=== PATIENT | male | born 1990 | race Caucasian/White ===

== ENCOUNTER 2020-10-04 03:58 | Emergency (ER) | payer OTHER ==
[~2020-10-04] VITALS: Ht 188 cm; Wt 126.6 kg
[2020-10-04 04:04] VITALS: BP 148/75
--- NOTE | 2020-10-04 04:04 | NUR ---
TO BED AMBULATORY
--- NOTE | 2020-10-04 04:15 | NUR ---
30 YO M BIB SELF FOR C/O COUGH X6-8 WEEKS. PT STATES HE HAS PROD. COUGH WITH RED TINGED SPUTUM. PT STATES HE HAS +40 LB WEIGHT LOSS, NIGHT SWEATS, AND INTERMITTENT CHEST PAIN IN THE PAST COUPLE MONTHS. LUNG SOUNDS DIMINISHED. DENIES CP @ THIS TIME. ABD SOFT NON DISTENDED. WILL UPDATE ERMD. HX:DENIES AX: SHELLFISH RX: DENIES
[2020-10-04 05:19] LABS: BASOPHILS # (AUTO) 0.1 K/uL (0.00-0.22); BASOPHILS % (AUTO) 0.9 % (0.0-2.0); EOSINOPHILS # (AUTO) 0.2 K/uL (0-0.4); EOSINOPHILS % (AUTO) 1.6 % (0.0-4.0); HEMATOCRIT 45.9 % (36-52); HEMOGLOBIN 14.8 g/dL (12.0-18.0); LYMPHOCYTES # (AUTO) 3.4 K/uL (2.0-11.5); LYMPHOCYTES % (AUTO) 23.1 % (20.5-51.1); MEAN CORPUSCULAR HEMOGLOBIN 21 pg (27-31); MEAN CORPUSCULAR HGB CONC 32 g/dL (33-37); MEAN CORPUSCULAR VOLUME 64.8 fL (80-94); MONOCYTES # (AUTO) 1.3 K/uL (0.8-1.0); MONOCYTES % (AUTO) 8.8 % (1.7-9.3); NEUTROPHILS # (AUTO) 9.6 K/uL (1.8-7.7); NEUTROPHILS % (AUTO) 65.6 % (42.2-75.2); PLATELET COUNT (AUTO) 282 K/uL (140-450); RED BLOOD CELL COUNT(AUTO) 7.08 MIL/uL (4.20-6.10); RED CELL DISTRIBUTION WIDTH 16.4 % (11.6-13.7); WHITE BLOOD COUNT (AUTO) 14.7 K/uL (4.8-10.8)
[2020-10-04 05:31] LABS: ALBUMIN 3.8 g/dL (3.4-5.0); ANION GAP 13.1 (8-16); CARBON DIOXIDE 25.2 mmol/L (21-32); POTASSIUM 4.3 mmol/L (3.5-5.1); TOTAL BILIRUBIN 0.6 mg/dL (0.0-1.0)
[2020-10-04 06:25] VITALS: BP 134/65
--- NOTE | 2020-10-04 06:40 | NUR ---
Patient discharged with v/s stable. Written and verbal after care instructions given and explained. Patient verbalized understanding. Ambulatory with steady gait. All questions addressed prior to discharge. Advised to follow up with PMD.
== END 2020-10-04 06:25 | disposition home or self-care (01) ==
LOC: MED 03:58
DX: R04.2 Hemoptysis (principal); Z91.013 Allergy to seafood
CPT/HCPCS: 36415; 71045; 80053; 85025; 99284